=== PATIENT | male | born 1990 | race American Indian/Alaskan Native ===

== ENCOUNTER 2019-09-09 13:37 | Emergency (ER) | payer SELFPAY ==
[2019-09-09 13:53] VITALS: BP 112/62
--- NOTE | 2019-09-09 16:38 | Emergency Department Report ---
ED General Adult HPI - General Chief complaint: Extremity Injury, Upper Stated complaint: L FINGER INJURY Source: patient Mode of arrival: Ambulatory Limitations: No Limitations - History of Present Illness Initial comments: 28yo WM states that he was cleaning a deer when he made a motion downward which resulted in him cutting his finger and smashing his hand with blunt force. He states that the pain is an 8 of 10 with movement. -: Sudden Location: upper extremity (L hand) Radiation: proximal Severity scale (0 -10): 8 Quality: aching Consistency: constant Improves with: immobilization Worsens with: movement Associated Symptoms: denies other symptoms Treatments Prior to Arrival: none - Related Data Previous Rx's Medication Instructions Recorded Last Taken Type cephALEXin [Keflex] 500 mg PO Q12HR 10 Days #20 cap 09/09/19 Unknown Rx ED Review of Systems ROS: Stated complaint: L FINGER INJURY Other details as noted in HPI Comment: All other systems reviewed and negative Constitutional: no symptoms reported Musculoskeletal: as per HPI Skin: as per HPI ED Past Medical Hx - Past Medical History Previous Medical History?: No - Surgical History Past Surgical History?: No - Social History Smoking Status: Never Smoker Substance Use Type: None - Medications Home Medications: Home Medications Medication Instructions Recorded Confirmed Last Taken Type cephALEXin [Keflex] 500 mg PO Q12HR 10 Days #20 cap 09/09/19 Unknown Rx ED Physical Exam - General Limitations: No Limitations General appearance: alert, in no apparent distress - Head Head exam: Present: atraumatic, normocephalic - Eye Eye exam: Present: normal appearance, PERRL, EOMI - ENT ENT exam: Present: normal exam, normal orophraynx - Neck Neck exam: Present: normal inspection, full ROM. Absent: tenderness - Respiratory Respiratory exam: Present: normal lung sounds bilaterally. Absent: respiratory distress, wheezes - Cardiovascular Cardiovascular Exam: Present: regular rate, normal rhythm, normal heart sounds - GI/Abdominal GI/Abdominal exam: Present: soft, distended. Absent: tenderness - Rectal Rectal exam: Present: deferred - Extremities Exam Extremities exam: Present: tenderness, joint swelling, other (mild swelling of the L index finger; 1 cm closed Laceration at the CMP of the L index finger) - Back Exam Back exam: Present: normal inspection, full ROM. Absent: tenderness - Neurological Exam Neurological exam: Present: alert, altered - Psychiatric Psychiatric exam: Present: normal affect, normal mood. Absent: anxious - Skin Skin exam: Present: warm, dry, intact ED Course Vital Signs 09/09/19 13:49 Temperature 98.7 F Pulse Rate 90 Respiratory 16 Rate Blood Pressure 112/62 O2 Sat by Pulse 96 Oximetry ED Medical Decision Making - Radiology Data [facility] [address] [place] [address] XRay Report Signed Patient: POOJA PERLA MR#: [id number] : 1990 Acct:[id number] Age/Sex: 28 / M ADM Date: 09/09/19 Loc: ED Attending Dr: Ordering Physician: SINCERE ROBERTS PA-C Date of Service: 09/09/19 Procedure(s): XR hand 3+V LT Accession Number(s): [id number] cc: SINCERE ROBERTS PA-C Fluoro Time In Minutes: LEFT HAND 3 VIEWS. INDICATION / CLINICAL INFORMATION: hand injury COMPARISON: None available. FINDINGS: BONES / JOINT(S): No acute fracture or subluxation. No significant arthritis. SOFT TISSUES: No significant abnormality. ADDITIONAL FINDINGS: None. Signer Name: Jose Manuel Ag MD Signed: 09/09/2019 5:09 PM Workstation Name: [id number] Transcribed By: ES Dictated By: Jose Manuel Ag MD Electronically Authenticated By: Jose Manuel Ag MD Signed Date/Time: 09/09/191708 DD/ 07 TD/TT: - Medical Decision Making 28yo WM states that he was cleaning a deer when he made a motion downward which resulted in him cutting his finger and smashing his hand with blunt force. He states that the pain is an 8 of 10 with movement. Pt was examined and his L index finger displayed mild swelling and tenderness. An x-ray was obtained and no abnormalities were found. Pt was given Motrin and instructed to take as direc milena and RICE; due to the laceration being closed, pt was given antibiotics to preemptively treat. An immobilizer was placed on his finger Pt was also told to f/u with PCP and see ER as needed. Critical care attestation.: If time is entered above; I have spent that time in minutes in the direct care of this critically ill patient, excluding procedure time. ED Disposition Clinical Impression: Hand injury, Laceration Disposition: DC-01 TO HOME OR SELFCARE Is pt being admited?: No Does the pt Need Aspirin: No Condition: Stable Additional Instructions: Pt was given Motrin and instructed to take as directed and RICE; due to the laceration being closed, pt was given antibiotics to preemptively treat. An immobilizer was placed on his finger Pt was also told to f/u with PCP and see ER as needed. Prescriptions: cephALEXin [Keflex] 500 mg PO Q12HR 10 Days #20 cap Referrals: [facility] [Outside] - 3-5 Days Forms: Work/School Release Form(ED) Time of Disposition: 17:26
--- NOTE | 2019-09-09 17:13 | XRay Report ---
LEFT HAND 3 VIEWS. INDICATION / CLINICAL INFORMATION: hand injury COMPARISON: None available. FINDINGS: BONES / JOINT(S): No acute fracture or subluxation. No significant arthritis. SOFT TISSUES: No significant abnormality. ADDITIONAL FINDINGS: None. Signer Name: Jose Manuel Ag MD Signed: 09/09/2019 5:09 PM Workstation Name: [id number]
== END 2019-09-09 17:40 | disposition home or self-care (01) ==
LOC: EEVIPCON 13:37 → ED 13:37
DX: S61.211A Laceration without foreign body of left index finger without damage to nail, initial encounter (principal); W23.0XXA Caught, crushed, jammed, or pinched between moving objects, initial encounter; Y93.89 Activity, other specified; Y92.89 Other specified places as the place of occurrence of the external cause; Y99.8 Other external cause status